=== PATIENT | female | born 1960 | race Caucasian/White ===

== ENCOUNTER 2021-04-12 09:28 | Emergency (ER) | payer OTHER ==
[~2021-04-12] VITALS: Ht 165.1 cm; Wt 55.0 kg
[2021-04-12] MEDS ORDERED: ALBUTEROL SULFATE 2.5 MG/0.5 ML INH NEB SOLN INH ONE (09:50)
[2021-04-12] MEDS ORDERED: IPRATROPIUM 0.5MG/ALBUTEROL 2.5MG INH SOL UD 3ML (DUONEB) NEB ONE (09:50)
[2021-04-12] MEDS ORDERED: methylPREDNISolone 40MG 1ML VIAL IV ONE (09:50)
[2021-04-12 10:19] LABS: BASO # 0.1 10^3/uL (0.0-0.2); BASO % 1.1 % (0.0-1.0); EOS # 0.3 10^3/uL (0.0-0.5); HEMATOCRIT 43.9 % (36.0-47.0); HEMOGLOBIN 14.4 g/dl (12.0-15.5); LYMPH # 1.6 10^3/uL (1.5-5.0); LYMPH % 19.9 % (24.0-44.0); MEAN CORPUSCULAR HEMOGLOBIN 30.8 pg (27.0-33.0); MEAN CORPUSCULAR HGB CONC 32.8 g/dl (32.0-36.5); MONO # 1.2 10^3/uL (0.0-0.8); NEUTROPHILS # 5.1 10^3/uL (1.5-8.5); NEUTROPHILS % 61.5 % (36.0-66.0); PLATELET COUNT, AUTOMATED 410 10^3/uL (150-450); RED BLOOD COUNT 4.67 10^6/uL (4.00-5.40); WHITE BLOOD COUNT 8.2 10^3/uL (4.0-10.0)
--- NOTE | 2021-04-12 10:41 | REP ---
INDICATION: sob. COMPARISON: None. TECHNIQUE: Sitting AP portable chest x-ray. FINDINGS: EKG monitoring electrodes are seen. Oxygen delivery tubing is noted. There are surgical clips in the right axillary soft tissues. The lungs are hyperinflated but clear. Pleural angles are sharp. Heart size is normal. The aorta is calcific. IMPRESSION: Hyperinflation. Otherwise no acute disease. <Electronically signed by Adalberto Archibald > 04/12/21 [id number]
[2021-04-12 11:30] VITALS: BP 154/89
[2021-04-12 11:51] LABS: BLOOD UREA NITROGEN 12 MG/DL (7-18); CALCIUM LEVEL 8.8 MG/DL (8.5-10.1); CARBON DIOXIDE LEVEL 26 MEQ/L (21-32); CHLORIDE LEVEL 108 MEQ/L (98-107); CK-MB VALUE MASS 2.2 NG/ML (<3.6); CPK CREATINE PHOSPHOKINASE 124 U/L (26-192); CREATININE FOR GFR 0.53 MG/DL (0.55-1.30); GLOMERULAR FILTRATION RATE > 60.0 (>51); GLUCOSE, FASTING 98 MG/DL (70-100); MB/CK RELATIVE INDEX 1.77 (< OR =4); NT-PRO BNP 192 PG/ML (<125); SODIUM LEVEL 139 MEQ/L (136-145); TROPONIN I < 0.02 NG/ML (< 0.10)
[2021-04-12 12:22] VITALS: O2SAT 96
[2021-04-12] MEDS ORDERED: MOXIFLOXACIN 400 MG TAB PO ONE (12:55)
[2021-04-12] MEDS ORDERED: MOXI400T11 PO (12:58)
[2021-04-12] MEDS ORDERED: PRED20TA PO (12:59)
[2021-04-12] MEDS ORDERED: COMBAER6 INH (13:00)
--- NOTE | 2021-04-13 04:24 | ECGEPIP ---
[facility] - ED Test Date: 2021-04-12 Pat Name: GABRIELA PULIDO Department: Room: - Gender: Female Field Coordinator: ROHINI : 1960 Requested By: Chante Hernandez Order Number: [id number] Reading MD: Clark Sofia Measurements Intervals [place] Rate: 77 P: 80 MN: 152 QRS: 75 QRSD: 66 T: 79 QT: 386 QTc: 436 Interpretive Statements Normal sinus rhythm Septal infarct , age undetermined NSTTW ABNORMALITY(S) NO PRIORS FOR COMPARISON Electronically Signed on 04-13-2021 4:23:59 EDT by Clark Sofia
== END 2021-04-12 13:41 | disposition home or self-care (01) ==
LOC: M ED 09:28
DX: B34.8 Other viral infections of unspecified site (principal); J44.1 Chronic obstructive pulmonary disease with (acute) exacerbation; Z99.81 Dependence on supplemental oxygen; Z85.3 Personal history of malignant neoplasm of breast; F17.200 Nicotine dependence, unspecified, uncomplicated; Z88.5 Allergy status to narcotic agent; Z88.1 Allergy status to other antibiotic agents; Z88.8 Allergy status to other drugs, medicaments and biological substances
CPT/HCPCS: 71045; 80048; 82550; 82553; 83880; 84484; 85025; 87798; 93005; 94640; 96374; 99284; J2920

== ENCOUNTER 2024-05-06 12:31 | Inpatient (IN) | payer MEDICARE, OTHER ==
[~2024-05-06] VITALS: Ht 165.1 cm; Wt 64.1 kg
[~2024-05-06 12:31] MED LIST: COMBAER6 INH; MOXI400T11 PO; PRED20TA PO
[2024-05-06 14:21] LABS: BASO # 0.1 10^3/uL (0.0-0.2); BASO % 0.4 % (0.0-1.0); EOS # 0.1 10^3/uL (0.0-0.5); EOS % 0.6 % (0.0-3.0); HEMATOCRIT 43.2 % (36.0-47.0); HEMOGLOBIN 14.1 g/dl (12.0-15.5); LYMPH # 1.5 10^3/uL (1.5-5.0); LYMPH % 6.4 % (24.0-44.0); MEAN CORPUSCULAR HEMOGLOBIN 27.4 pg (27.0-33.0); MEAN CORPUSCULAR HGB CONC 32.6 g/dl (32.0-36.5); MONO # 1.2 10^3/uL (0.0-0.8); MONO % 5.1 % (2.0-8.0); NEUTROPHILS # 19.8 10^3/uL (1.5-8.5); NEUTROPHILS % 86.9 % (36.0-66.0); PLATELET COUNT, AUTOMATED 430 10^3/uL (150-450); RED BLOOD COUNT 5.14 10^6/uL (4.00-5.40); WHITE BLOOD COUNT 22.9 10^3/uL (4.0-10.0)
[2024-05-06] MEDS ORDERED: ISOVUE-370 76% 100ML VIAL As Ordered ONE (14:27)
[2024-05-06 14:42] LABS: C REACTIVE PROTEIN QUANTITATIV < 0.40 MG/DL (<1.0); LIPASE 17 U/L (12-53)
[2024-05-06 14:44] LABS: ALBUMIN 3.8 G/DL (3.2-5.2); ALKALINE PHOSPHATASE 136 U/L (46-116); ALT/SGPT 12 U/L (7.0-40); AST/SGOT 19 U/L (<34); BILIRUBIN,DIRECT 0.2 MG/DL (<0.4); BILIRUBIN,TOTAL 0.5 MG/DL (0.3-1.2); TOTAL PROTEIN 7.3 G/DL (5.7-8.2)
[2024-05-06] MEDS: ONDANSETRON 4MG 2ML VIAL IV ONE (15:55)
[2024-05-06] MEDS: ACETAMINOPHEN *IV* 1,000 MG in IV 1 EA IV ONE (15:56)
[2024-05-06] MEDS ORDERED: ATOR40TA75 PO (16:40)
[2024-05-06] MEDS ORDERED: HOME MED LIST COMPLETE! XX SCH (16:40)
[2024-05-06] MEDS ORDERED: DULO1CAP6 PO (16:40)
[2024-05-06] MEDS ORDERED: NITR0.4S14 PO (16:40)
[2024-05-06] MEDS ORDERED: AMLO1TAB25 PO (16:40)
[2024-05-06] MEDS ORDERED: SYMB16INH INH (16:40)
[2024-05-06] MEDS ORDERED: GABA-282 PO (16:40)
[2024-05-06] MEDS ORDERED: PANT20TA6 PO (16:40)
[2024-05-06] MEDS ORDERED: METO1TAB87 PO (16:40)
[2024-05-06] MEDS: metroNIDAZOLE 500 MG in IV 1 EA IV ONE (17:10)
[2024-05-06] MEDS ORDERED: NITROGLYCERIN 0.4MG SUBL TABLET SL PRN (17:35)
[2024-05-06] MEDS: CIPROFLOXACIN 400 MG in IV 1 EA IV SCH (18:00)
[2024-05-06] MEDS: CIPROFLOXACIN 400 MG in IV 1 EA IV ONE (18:39)
[2024-05-06] MEDS: D5W/0.9% SODIUM CHLORIDE 1,000 ML IV SCH (21:05)
[2024-05-06] MEDS: GABAPENTIN 300 MG CAP PO SCH (21:05)
[2024-05-06] MEDS: METOPROLOL TART 25 MG TABLET PO SCH (21:06)
[2024-05-06] MEDS: ATORVASTATIN 20 MG TAB PO SCH (21:06)
[2024-05-06] MEDS: SYMBICORT 160/4.5MCG INHALER 6GM INH SCH (21:14)
[2024-05-06] MEDS: COMBIVENT RESPIMAT 100-20MCG INHALER 4GM INH SCH (21:14)
[2024-05-06 21:30] VITALS: BP 153/95; TEMP 98.1; O2SAT 96
[2024-05-06] MEDS: ACETAMINOPHEN TAB 650MG DOSE (2X325MG) PO PRN (23:20)
[2024-05-07] MEDS: metroNIDAZOLE 500 MG in IV 1 EA IV SCH (01:41)
[2024-05-07 04:00] VITALS: BP 142/84; TEMP 98.1; O2SAT 97
[2024-05-07 05:25] LABS: HEMATOCRIT 40.8 % (36.0-47.0); HEMOGLOBIN 13.1 g/dl (12.0-15.5); MEAN CORPUSCULAR HEMOGLOBIN 26.8 pg (27.0-33.0); MEAN CORPUSCULAR HGB CONC 32.1 g/dl (32.0-36.5); MEAN CORPUSCULAR VOLUME 83.6 fl (80.0-96.0); PLATELET COUNT, AUTOMATED 421 10^3/uL (150-450); RED BLOOD COUNT 4.88 10^6/uL (4.00-5.40); WHITE BLOOD COUNT 18.9 10^3/uL (4.0-10.0)
[2024-05-07 06:08] LABS: ALKALINE PHOSPHATASE 119 U/L (46-116); ALT/SGPT < 9 U/L (7.0-40); AST/SGOT 14 U/L (<34); BILIRUBIN,TOTAL 0.7 MG/DL (0.3-1.2); BLOOD UREA NITROGEN 8 MG/DL (9-23); CALCIUM LEVEL 8.5 MG/DL (8.3-10.6); CARBON DIOXIDE LEVEL 25 MMOL/L (20-31); CHLORIDE LEVEL 111 MMOL/L (98-107); CREATININE FOR GFR 0.62 MG/DL (0.55-1.30); GLOMERULAR FILTRATION RATE > 60.0 (>45); GLUCOSE, FASTING 148 MG/DL (74-106); SODIUM LEVEL 140 MMOL/L (136-145); TOTAL PROTEIN 6.2 G/DL (5.7-8.2)
[2024-05-07] MEDS: DULoxetine 30MG CAPSULE (CYMBALTA) PO SCH (09:09)
[2024-05-07] MEDS: PANTOPRAZOLE 40MG VIAL IV SCH (09:11)
[2024-05-07 12:00] VITALS: BP 130/72; TEMP 98.8; O2SAT 97
[2024-05-07 13:21] LABS: HEMATOCRIT 36.6 % (36.0-47.0); HEMOGLOBIN 11.8 g/dl (12.0-15.5)
[2024-05-07] MEDS: HYDROMORPHONE HCL 0.5 MG/ 0.5 ML SYRINGE IV PRN (14:03)
[2024-05-07] MEDS: AMINO AC/ELECTROLYTE/DEX/CALC 1,000 ML IV SCH (17:59)
[2024-05-07] MEDS: FAT EMULSION IV 250 ML IV ONE (17:59)
[2024-05-07 18:23] LABS: HEMATOCRIT 37.4 % (36.0-47.0); HEMOGLOBIN 11.9 g/dl (12.0-15.5)
[2024-05-07 18:53] VITALS: O2SAT 94
[2024-05-07 19:20] VITALS: BP 137/74; TEMP 97.9; O2SAT 95
[2024-05-08 00:39] LABS: HEMOGLOBIN 11.3 g/dl (12.0-15.5)
[2024-05-08 04:10] VITALS: BP 136/73; TEMP 98.1; O2SAT 88
[2024-05-08 06:22] LABS: BASO # 0.1 10^3/uL (0.0-0.2); BASO % 0.6 % (0.0-1.0); EOS # 0.5 10^3/uL (0.0-0.5); EOS % 3.2 % (0.0-3.0); HEMATOCRIT 34.9 % (36.0-47.0); HEMOGLOBIN 11.2 g/dl (12.0-15.5); LYMPH # 2.6 10^3/uL (1.5-5.0); LYMPH % 15.3 % (24.0-44.0); MEAN CORPUSCULAR HEMOGLOBIN 27.4 pg (27.0-33.0); MEAN CORPUSCULAR HGB CONC 32.1 g/dl (32.0-36.5); MEAN CORPUSCULAR VOLUME 85.3 fl (80.0-96.0); MONO # 1.1 10^3/uL (0.0-0.8); MONO % 6.2 % (2.0-8.0); NEUTROPHILS # 12.6 10^3/uL (1.5-8.5); NEUTROPHILS % 74.3 % (36.0-66.0); PLATELET COUNT, AUTOMATED 353 10^3/uL (150-450); RED BLOOD COUNT 4.09 10^6/uL (4.00-5.40)
[2024-05-08 06:53] LABS: ALBUMIN 2.7 G/DL (3.2-5.2); ALKALINE PHOSPHATASE 94 U/L (46-116); ALT/SGPT < 9 U/L (7.0-40); AST/SGOT 15 U/L (<34); BILIRUBIN,TOTAL 0.2 MG/DL (0.3-1.2); BLOOD UREA NITROGEN 9 MG/DL (9-23); CALCIUM LEVEL 8.5 MG/DL (8.3-10.6); CARBON DIOXIDE LEVEL 28 MMOL/L (20-31); CHLORIDE LEVEL 108 MMOL/L (98-107); GLOMERULAR FILTRATION RATE > 60.0 (>45); GLUCOSE, FASTING 110 MG/DL (74-106); MAGNESIUM LEVEL 1.8 MG/DL (1.8-2.4); PHOSPHORUS LEVEL 3.1 MG/DL (2.4-5.1); POTASSIUM SERUM 3.8 MMOL/L (3.5-5.1); SODIUM LEVEL 138 MMOL/L (136-145); TOTAL PROTEIN 5.6 G/DL (5.7-8.2)
[2024-05-08] MEDS: METOCLOPRAMIDE INJ 10MG/2ML VIAL IV PRN (07:03)
[2024-05-08 07:34] VITALS: O2SAT 94
[2024-05-08] MEDS: PIPERACILLIN/TAZOBACTAM SOD 3.375 GM in D5W MINI-BAG PLUS 50 ML IV SCH (09:24)
[2024-05-08 12:00] VITALS: BP 123/65; TEMP 98.2; O2SAT 90
[2024-05-08 12:32] LABS: HEMATOCRIT 35.5 % (36.0-47.0); HEMOGLOBIN 11.3 g/dl (12.0-15.5)
[2024-05-08 13:14] VITALS: O2SAT 94
[2024-05-08] MEDS: FAT EMULSION IV 250 ML IV ONE (18:22)
[2024-05-08 18:24] LABS: HEMATOCRIT 35.3 % (36.0-47.0); HEMOGLOBIN 11.2 g/dl (12.0-15.5)
[2024-05-08 20:50] VITALS: BP 128/65; TEMP 98.1; O2SAT 96
[2024-05-09 03:48] VITALS: BP 128/73; TEMP 97.5; O2SAT 97
[2024-05-09 06:31] LABS: BASO # 0.1 10^3/uL (0.0-0.2); EOS % 7.6 % (0.0-3.0); HEMATOCRIT 37.1 % (36.0-47.0); LYMPH # 2.4 10^3/uL (1.5-5.0); LYMPH % 18.7 % (24.0-44.0); MEAN CORPUSCULAR HEMOGLOBIN 27.3 pg (27.0-33.0); MEAN CORPUSCULAR HGB CONC 32.3 g/dl (32.0-36.5); MEAN CORPUSCULAR VOLUME 84.3 fl (80.0-96.0); MONO % 8.1 % (2.0-8.0); NEUTROPHILS # 8.1 10^3/uL (1.5-8.5); NEUTROPHILS % 64.2 % (36.0-66.0); PLATELET COUNT, AUTOMATED 365 10^3/uL (150-450); WHITE BLOOD COUNT 12.6 10^3/uL (4.0-10.0)
[2024-05-09 07:01] LABS: ALBUMIN 2.9 G/DL (3.2-5.2); ALKALINE PHOSPHATASE 91 U/L (46-116); ALT/SGPT 10 U/L (7.0-40); AST/SGOT 21 U/L (<34); BILIRUBIN,TOTAL 0.3 MG/DL (0.3-1.2); BLOOD UREA NITROGEN 9 MG/DL (9-23); CALCIUM LEVEL 8.9 MG/DL (8.3-10.6); CARBON DIOXIDE LEVEL 28 MMOL/L (20-31); CHLORIDE LEVEL 107 MMOL/L (98-107); CREATININE FOR GFR 0.62 MG/DL (0.55-1.30); GLOMERULAR FILTRATION RATE > 60.0 (>45); GLUCOSE, FASTING 109 MG/DL (74-106); MAGNESIUM LEVEL 2.1 MG/DL (1.8-2.4); POTASSIUM SERUM 3.7 MMOL/L (3.5-5.1); SODIUM LEVEL 140 MMOL/L (136-145); TOTAL PROTEIN 5.9 G/DL (5.7-8.2)
[2024-05-09] MEDS: POTASSIUM CHLORIDE 10MEQ SR TABLET PO SCH (08:59)
[2024-05-09 12:00] VITALS: BP 119/61; TEMP 97.9; O2SAT 91
[2024-05-09] MEDS: FAT EMULSION IV 250 ML IV ONE (17:54)
[2024-05-09 20:42] VITALS: BP 135/84; TEMP 98.8; O2SAT 96
[2024-05-10 04:01] VITALS: BP 114/73; TEMP 97.3; O2SAT 97
[2024-05-10 06:01] LABS: BASO # 0.1 10^3/uL (0.0-0.2); BASO % 0.7 % (0.0-1.0); EOS # 1.2 10^3/uL (0.0-0.5); EOS % 7.6 % (0.0-3.0); HEMATOCRIT 39.1 % (36.0-47.0); HEMOGLOBIN 12.6 g/dl (12.0-15.5); LYMPH # 1.9 10^3/uL (1.5-5.0); LYMPH % 12.4 % (24.0-44.0); MEAN CORPUSCULAR HEMOGLOBIN 27.2 pg (27.0-33.0); MEAN CORPUSCULAR HGB CONC 32.2 g/dl (32.0-36.5); MEAN CORPUSCULAR VOLUME 84.4 fl (80.0-96.0); MONO # 1.1 10^3/uL (0.0-0.8); MONO % 7.2 % (2.0-8.0); NEUTROPHILS # 10.9 10^3/uL (1.5-8.5); NEUTROPHILS % 71.8 % (36.0-66.0); PLATELET COUNT, AUTOMATED 378 10^3/uL (150-450); RED BLOOD COUNT 4.63 10^6/uL (4.00-5.40); WHITE BLOOD COUNT 15.2 10^3/uL (4.0-10.0)
[2024-05-10 06:19] LABS: BLOOD UREA NITROGEN 11 MG/DL (9-23); CALCIUM LEVEL 9.1 MG/DL (8.3-10.6); CARBON DIOXIDE LEVEL 28 MMOL/L (20-31); CHLORIDE LEVEL 107 MMOL/L (98-107); CREATININE FOR GFR 0.65 MG/DL (0.55-1.30); GLOMERULAR FILTRATION RATE > 60.0 (>45); GLUCOSE, FASTING 116 MG/DL (74-106); MAGNESIUM LEVEL 2.2 MG/DL (1.8-2.4); POTASSIUM SERUM 4.3 MMOL/L (3.5-5.1); SODIUM LEVEL 136 MMOL/L (136-145)
[2024-05-10] MEDS: amLODIPine 5 MG TAB PO SCH (11:13)
[2024-05-10] MEDS: METOPROLOL TART 12.5 MG PER 1/2 TAB PO SCH (11:14)
[2024-05-10] MEDS ORDERED: MORPHINE 2 MG/ML 1ML VIAL IV PRN (11:15)
[2024-05-10] MEDS: MORPHINE 2 MG/ML 1ML VIAL IV PRN (11:30)
[2024-05-10 12:00] VITALS: BP 124/76; TEMP 98.1; O2SAT 93
[2024-05-10 15:07] LABS: Chitobioside Carbohydrat (ACCA 51 units (0-90); Laminaribioside Carbohyd (ALCA 7 units (0-60); Mannobioside Carbohydrat (AMCA 25 units (0-100); Saccharomyces cerevisiae IgG A 67 units (0-50)
[2024-05-10] MEDS: FAT EMULSION IV 250 ML IV ONE (18:11)
[2024-05-10 20:21] VITALS: BP 102/61; TEMP 98.1; O2SAT 95
[2024-05-11 04:00] VITALS: BP 107/69; TEMP 97.9; O2SAT 97
[2024-05-11 05:48] LABS: BASO # 0.1 10^3/uL (0.0-0.2); EOS # 1.1 10^3/uL (0.0-0.5); EOS % 8.5 % (0.0-3.0); HEMATOCRIT 36.9 % (36.0-47.0); HEMOGLOBIN 11.9 g/dl (12.0-15.5); LYMPH # 2.2 10^3/uL (1.5-5.0); LYMPH % 17.1 % (24.0-44.0); MEAN CORPUSCULAR HGB CONC 32.2 g/dl (32.0-36.5); MEAN CORPUSCULAR VOLUME 83.7 fl (80.0-96.0); MONO # 1.1 10^3/uL (0.0-0.8); MONO % 8.8 % (2.0-8.0); NEUTROPHILS # 8.2 10^3/uL (1.5-8.5); NEUTROPHILS % 64.3 % (36.0-66.0); PLATELET COUNT, AUTOMATED 330 10^3/uL (150-450); RED BLOOD COUNT 4.41 10^6/uL (4.00-5.40); WHITE BLOOD COUNT 12.7 10^3/uL (4.0-10.0)
[2024-05-11 06:18] LABS: BLOOD UREA NITROGEN 11 MG/DL (9-23); CALCIUM LEVEL 8.8 MG/DL (8.3-10.6); CARBON DIOXIDE LEVEL 28 MMOL/L (20-31); CHLORIDE LEVEL 105 MMOL/L (98-107); CREATININE FOR GFR 0.69 MG/DL (0.55-1.30); GLOMERULAR FILTRATION RATE > 60.0 (>45); GLUCOSE, FASTING 113 MG/DL (74-106); MAGNESIUM LEVEL 2.1 MG/DL (1.8-2.4); PHOSPHORUS LEVEL 4.8 MG/DL (2.4-5.1); POTASSIUM SERUM 4.4 MMOL/L (3.5-5.1); SODIUM LEVEL 138 MMOL/L (136-145)
[2024-05-11 12:00] VITALS: BP 123/73; TEMP 97.5; O2SAT 96
[2024-05-11] MEDS: ENOXAPARIN 40MG/0.4ML SYRINGE (J1650 PER 10MG) SC SCH (13:03)
[2024-05-11 20:21] VITALS: BP 124/74; TEMP 98.1; O2SAT 93
[2024-05-12] VITALS (7 sets, daily range): BP systolic 117–135; BP diastolic 67–85; TEMP 97.7; O2SAT 85–97
[2024-05-12 06:51] LABS: BASO # 0.2 10^3/uL (0.0-0.2); BASO % 1.5 % (0.0-1.0); EOS # 0.8 10^3/uL (0.0-0.5); HEMATOCRIT 43.4 % (36.0-47.0); HEMOGLOBIN 13.7 g/dl (12.0-15.5); LYMPH % 18.1 % (24.0-44.0); MEAN CORPUSCULAR HEMOGLOBIN 26.7 pg (27.0-33.0); MEAN CORPUSCULAR HGB CONC 31.6 g/dl (32.0-36.5); MEAN CORPUSCULAR VOLUME 84.4 fl (80.0-96.0); MONO # 1.4 10^3/uL (0.0-0.8); MONO % 12.6 % (2.0-8.0); NEUTROPHILS # 6.7 10^3/uL (1.5-8.5); NEUTROPHILS % 60.1 % (36.0-66.0); PLATELET COUNT, AUTOMATED 345 10^3/uL (150-450); RED BLOOD COUNT 5.14 10^6/uL (4.00-5.40); WHITE BLOOD COUNT 11.2 10^3/uL (4.0-10.0)
[2024-05-12 07:25] LABS: BLOOD UREA NITROGEN 11 MG/DL (9-23); CALCIUM LEVEL 9.7 MG/DL (8.3-10.6); CARBON DIOXIDE LEVEL 27 MMOL/L (20-31); CHLORIDE LEVEL 106 MMOL/L (98-107); CREATININE FOR GFR 0.85 MG/DL (0.55-1.30); GLOMERULAR FILTRATION RATE > 60.0 (>45); GLUCOSE, FASTING 105 MG/DL (74-106); MAGNESIUM LEVEL 2.2 MG/DL (1.8-2.4); POTASSIUM SERUM 4.8 MMOL/L (3.5-5.1); SODIUM LEVEL 140 MMOL/L (136-145)
[2024-05-12] MEDS ORDERED: NORV5TAB PO (11:19)
[2024-05-12] MEDS ORDERED: METR-265 PO (11:19)
[2024-05-12] MEDS ORDERED: CIPR250T3 PO (11:19)
[2024-05-12] MEDS ORDERED: METO1TAB87 PO (11:19)
== END 2024-05-12 13:52 | disposition home or self-care (01) | DRG 872 ==
LOC: M ED 12:31 → M ED INP 17:25 → M MSPAV 20:47
PROVIDERS: ADMIT Hospitalist; ATTEND Internal Medicine
DX: A41.9 Sepsis, unspecified organism (principal); K57.92 Diverticulitis of intestine, part unspecified, without perforation or abscess without bleeding; K55.9 Vascular disorder of intestine, unspecified; A09 Infectious gastroenteritis and colitis, unspecified; E78.5 Hyperlipidemia, unspecified; J44.9 Chronic obstructive pulmonary disease, unspecified; I10 Essential (primary) hypertension; I25.10 Atherosclerotic heart disease of native coronary artery without angina pectoris; Z85.3 Personal history of malignant neoplasm of breast; F17.200 Nicotine dependence, unspecified, uncomplicated; I25.2 Old myocardial infarction